=== PATIENT | male | born 1975 | race Caucasian/White ===

== ENCOUNTER 2023-02-03 12:44 | Emergency (ER) | payer OTHER, BC ==
[~2023-02-03] VITALS: Ht 177.8 cm; Wt 122.5 kg
[~2023-02-03 12:44] MED LIST: ALLO100T PO; CIPR500T5 PO; INDO-11 PO; PRO40 PO
[2023-02-03 12:45] VITALS: BP_SYST 143; PULSE 111; RESP 19; TEMP 97.1; O2SAT 98
[2023-02-03] MEDS ORDERED: ASPIRIN 325 MG TABLET PO ONE (13:00)
[2023-02-03] MEDS ORDERED: levETIRAcetam 1,000 MG IV BAG 100 ML IV ONE (13:00)
[2023-02-03 14:18] LABS: BASOPHILS # (AUTO) 0.1 K/uL (0.0-0.2); BASOPHILS % (AUTO) 0.9 % (0.0-2.0); EOSINOPHILS # (AUTO) 0.2 K/uL (0.0-0.4); HEMOGLOBIN 13.2 g/dL (14.0-18.0); LYMPHOCYTES % (AUTO) 12.9 % (20.5-51.5); MEAN CORPUSCULAR HEMOGLOBIN 30 pg (27-31); MEAN CORPUSCULAR HGB CONC 33 % (32-36); MEAN CORPUSCULAR VOLUME 92 fL (79.0-98.0); MONOCYTES # (AUTO) 0.6 K/uL (0.0-1.0); MONOCYTES % (AUTO) 7.8 % (1.7-9.3); NEUTROPHILS # (AUTO) 6.2 K/uL (1.8-7.7); NEUTROPHILS % (AUTO) 76.4 % (40.0-70.0); PLATELET COUNT (AUTO) 267 K/uL (130-430); RED BLOOD CELL COUNT(AUTO) 4.35 MIL/uL (4.2-6.2); RED CELL DISTRIBUTION WIDTH 14.2 % (9.0-15.0); WHITE BLOOD COUNT (AUTO) 8.1 K/uL (4.8-10.8)
[2023-02-03 14:33] LABS: ANION GAP 7 (5-15); CALCIUM 8.6 mg/dL (8.4-11.0); CARBON DIOXIDE 27 mmol/L (23-29); CHLORIDE 101 mmol/L (98-107); CREATININE 0.99 mg/dL (0.55-1.30); GFR AFRICAN AMERICAN 104 mL/min (>90); GLUCOSE 93 mg/dL (74-106); POTASSIUM 3.8 mmol/L (3.5-5.1); SODIUM SERUM 135 mmol/L (136-145); UREA NITROGEN, BLOOD 16 mg/dL (8-21)
[2023-02-03 14:36] LABS: GFR NON AFRICAN-AMERICAN 86 mL/min (>90)
[2023-02-03] MEDS ORDERED: GUAI-723 PO (15:56)
[2023-02-03 16:18] VITALS: BP_SYST 143; PULSE 111; RESP 19; TEMP 97.1; O2SAT 98
== END 2023-02-03 16:17 | disposition home or self-care (01) ==
LOC: SED 12:44
DX: R07.89 Other chest pain (principal); B34.9 Viral infection, unspecified; K21.9 Gastro-esophageal reflux disease without esophagitis; Z79.899 Other long term (current) drug therapy
CPT/HCPCS: 36415; 71045; 80048; 83880; 84484; 85025; 85379; 93005; 99285; J1953